=== PATIENT | female | born 1935 | race Caucasian/White ===

== ENCOUNTER 2016-11-10 14:15 | Inpatient (IN) | payer MEDICARE, BC ==
[~2016-11-10] VITALS: Ht 165.1 cm; Wt 66.7 kg
[~2016-11-10 14:15] MED LIST: AMIT25TA PO; LEVO50TA5 PO; METO100T2 PO; OLME1TAB27 PO; SIMV20TA3 PO
[2016-11-10] MEDS ORDERED: IPRATRPIUM/ALBUTEROL 0.5/2.5MG 3 ML NEBU. NEB ONE ×2 (15:30→20:00)
--- NOTE | 2016-11-10 15:33 | RAD ---
INDICATION: chest pain COMPARISON: 11/22/2014 FINDINGS: Single view of chest obtained. Cardiac silhouette is enlarged. Calcific atherosclerosis. Repeat demonstration nodular appearance within the lungs. A portion of the nodularity at right upper lung appears slightly more prominent than prior. IMPRESSION: Repeat demonstration of nodular appearance throughout the bilateral lungs in this patient with known multiple pulmonary nodules bilaterally. Again this could be infectious, inflammatory or neoplastic in nature. Mild nodular patchy opacity right upper lung which may be slightly more prominent than prior. Although this could be secondary to overlap of structures infectious or inflammatory etiology is possible.
--- NOTE | 2016-11-10 15:43 | EKG ---
[facility] [address] [place] [address] Test Date: 2016-11-10 Test Time: 14:30:47 Pat Name: RONNIE RASHEED Department: Room: Gender: F Latexer: : 1935 Requested By: ARIANNA MEJIA Order Number: [id number] Reading MD: Cornell Hamilton Measurements Intervals [place] Rate: 87 P: 48 MT: 200 QRS: 29 QRSD: 90 T: 29 QT: 346 QTc: 417 Interpretive Statements SINUS RHYTHM Electronically Signed On 11-27-2016 14:31:03 FIELD EDUCATION DIRECTOR by Cornell Hamilton
[2016-11-10 16:10] LABS: BASO % 1 % (0-3); EOS % 0 % (0-3); HEMOGLOBIN 13.1 g/dL (12.0-15.5); LYMPH # 0.6 x10^3/uL (1.0-4.8); LYMPH % 6 % (24-48); MEAN CORPUSCULAR HEMOGLOBIN 29 pg (25-35); MEAN CORPUSCULAR HGB CONC 33 g/dL (31-37); MEAN CORPUSCULAR VOLUME 89 fL (79-100); MONO % 4 % (0-9); NEUT % 90 % (31-73); PLATELET COUNT 172 x10^3/uL (140-400); RED BLOOD COUNT 4.48 x10^6/uL (3.50-5.40); RED CELL DISTRIBUTION WIDTH 13.5 % (11.5-14.5); WHITE BLOOD COUNT 9.2 x10^3/uL (4.0-11.0)
[2016-11-10 16:24] LABS: CALCIUM 8.7 mg/dL (8.5-10.1); CREATININE 0.6 mg/dL (0.6-1.0); GFR 95.5; POTASSIUM 4.3 mmol/L (3.5-5.1)
[2016-11-10 16:30] LABS: ALBUMIN 3.1 g/dL (3.4-5.0); DIRECT BILIRUBIN 0.1 mg/dL (0.0-0.2); TOTAL BILIRUBIN 0.2 mg/dL (0.2-1.0); TOTAL PROTEIN 7.6 g/dL (6.4-8.2)
[2016-11-10] MEDS ORDERED: CEFTRIAXONE 1GM IVPB FOR OMNI 50 ML IV ONE (16:30)
[2016-11-10] MEDS ORDERED: AZITHRMYCN 500MG IVPB FOR OMNI 250 ML IV ONE (16:30)
[2016-11-10] MEDS ORDERED: OSELTAMIVIR 75 MG CAPSULE PO ONE (16:30)
[2016-11-10 16:50] LABS: OBC FLU VALID
[2016-11-10] MEDS ORDERED: ONDANSETRON PF 4 MG/2 ML VIAL. IV PRN (17:00)
[2016-11-10] MEDS ORDERED: MORPHINE SULFATE 2 MG/ML DISP.SYRIN. IV PRN (17:00)
--- NOTE | 2016-11-10 17:38 | RAD ---
PROCEDURE CT chest without IV contrast. HISTORY Abnormal chest radiograph. TECHNIQUE Noncontrast CT of the chest was performed. Exposure: One or more of the following individualized dose reduction techniques were utilized for this examination: 1. Automated exposure control. 2. Adjustment of the mA and/or kV according to patient size. 3. Use of iterative reconstruction technique. COMPARISON CT chest August 13, 2014. FINDINGS Thyroid is small, but symmetric. Trachea and mainstem bronchi appear patent. No mediastinal lymphadenopathy is seen. Aortic atherosclerosis is noted. Coronary artery calcifications are present. No pericardial thickening or cardiac chamber enlargement is identified. Both lungs demonstrate numerous pulmonary nodules. Largest soft tissue pulmonary nodule is seen in the right lower lobe and measures 1.8 centimeters in maximum dimension, unchanged. Since previous study, there is interval development of focal consolidation involving the medial right middle lobe, may be focus of acute airspace disease of parenchymal scarring. There is interval development of several irregular pulmonary nodules also seen with some ground-glass opacity involving the medial right upper lobe. These may represent acute is infectious or inflammatory process. No pneumothorax or pleural effusion is identified. Images of the upper abdomen demonstrate 3 millimeter nonobstructive nephrolith. Degenerative changes are present in spine. IMPRESSION 1. Numerous pulmonary nodules are seen. The largest pulmonary nodule right lower lobe is unchanged and suggests benign entity. 2. There is interval development of consolidation involving the medial right middle lobe as well as irregular pulmonary nodules in the right upper lobe. These may represent nonspecific infectious or inflammatory process. Recommend appropriate treatment and followup chest CT in 3 months. Electronically signed by: James Romero MD (Nov 10, 2016 17:36:46)
[2016-11-10 18:19] LABS: PLT ESTIMATE ADEQUATE (ADEQUATE); TOXIC GRANULATION SLIGHT; TOXIC VACUOLATION SLIGHT
[2016-11-10] MEDS ORDERED: PREDNISONE 10 MG TABLET PO ONE (20:00)
[2016-11-10 20:30] VITALS: BP 202/162
[2016-11-10 21:02] VITALS: BP 119/91
[2016-11-10] MEDS ORDERED: AMLO10TA2 PO (21:36)
[2016-11-10] MEDS ORDERED: METO100T2 PO (21:36)
[2016-11-10] MEDS ORDERED: LOSA50TA6 PO (21:36)
[2016-11-10] MEDS ORDERED: POTA20TA4 PO (21:38)
--- NOTE | 2016-11-10 21:42 | PHYS DOC ---
Past Medical History Past Medical History: Hypertension, Hypothyroid, Other Additional Past Medical Histor: Restless leg syndrome, PNEUMONIA, HOME O2 Past Surgical History: Hysterectomy Alcohol Use: None Drug Use: None Adult General Chief Complaint Chief Complaint: SHORTNESS OF BREATH HPI HPI 81-year-old female presenting to the emergency department today with nausea vomiting and myalgias weakness cough that is nonproductive and hypoxia upon triage. This been present for the last day or 2. It is worse with exertion. Associated with cough. No alleviating factors present. Review of systems is negative for chest pain headache. Positive for body aches nausea and a dry cough. All other review of systems is negative unless otherwise noted in history of present illness. Review of Systems Review of Systems SEE ABOVE. Current Medications Current Medications Current Medications Medications (Trade) Dose Ordered Sig/Eva Start Time Stop Time Status Last Admin Dose Admin Albuterol/ Ipratropium 3 ml 3 ml 1X ONCE 11/10/16 15:30 11/10/16 15:37 DC 11/10/16 15:35 3 ML Azithromycin 250 ml @ 250 mls/hr 1X ONCE 11/10/16 16:30 11/10/16 17:29 DC 11/10/16 17:18 250 MLS/HR Ceftriaxone Sodium (Rocephin 1gm Ivpb For Omni) 50 ml @ 100 mls/hr 1X ONCE 11/10/16 16:30 11/10/16 16:59 DC 11/10/16 16:30 100 MLS/HR Oseltamivir Phosphate (Tamiflu) 75 mg 1X ONCE 11/10/16 16:30 11/10/16 16:31 DC 11/10/16 16:50 75 MG Allergies Allergies Allergies Coded Allergies Type Severity Reaction Last Updated Verified No Known Drug Allergies 02/07/14 No Physical Exam Physical Exam Constitutional: Well developed, well nourished, no acute distress, non-toxic appearance. HENT: Normocephalic, atraumatic, bilateral external ears normal, oropharynx moist, no oral exudates, nose normal. [] Eyes: PERRLA, EOMI, conjunctiva normal, no discharge. Neck: Normal range of motion, no tenderness, supple, no stridor. [] Cardiovascular:Heart rate regular rhythm, no murmur Lungs & Thorax: Bilateral breath sounds clear to auscultation [] Abdomen: Bowel sounds normal, soft, no tenderness, no masses, no pulsatile masses. Skin: Warm, dry, no erythema, no rash. Back: No tenderness, no CVA tenderness. [] Extremities: No tenderness, no cyanosis, no clubbing, ROM intact, no edema. [] Neurologic: Alert and oriented X 3, normal motor function, normal sensory function, no focal deficits noted. Psychologic: Affect normal, judgement normal, mood normal. [] Current Patient Data Vital Signs Vital Signs Date Time Temp Pulse Resp B/P Pulse Ox O2 Delivery O2 Flow Rate FiO2 11/10/16 16:30 86 18 145/78 94 Nasal Cannula 2 11/10/16 14:35 97.9 97.9 Lab Values Laboratory Tests Test 11/10/16 14:30 11/10/16 16:00 Influenza Type A Antigen Negative (NEGATIVE) Influenza Type B Antigen Negative (NEGATIVE) White Blood Count 9.2x10^3/uL (4.0-11.0) Red Blood Count 4.48x10^6/uL (3.50-5.40) Hemoglobin 13.1g/dL (12.0-15.5) Hematocrit 40.0% (36.0-47.0) Mean Corpuscular Volume 89fL (79-100) Mean Corpuscular Hemoglobin 29pg (25-35) Mean Corpuscular Hemoglobin Concent 33g/dL (31-37) Red Cell Distribution Width 13.5% (11.5-14.5) Platelet Count 172x10^3/uL (140-400) Neutrophils (%) (Auto) 90% (31-73) H Lymphocytes (%) (Auto) 6% (24-48) L Monocytes (%) (Auto) 4% (0-9) Eosinophils (%) (Auto) 0% (0-3) Basophils (%) (Auto) 1% (0-3) Neutrophils # (Auto) 8.2x10^3uL (1.8-7.7) H Lymphocytes # (Auto) 0.6x10^3/uL (1.0-4.8) L Monocytes # (Auto) 0.4x10^3/uL (0.0-1.1) Eosinophils # (Auto) 0.0x10^3/uL (0.0-0.7) Basophils # (Auto) 0.0x10^3/uL (0.0-0.2) Segmented Neutrophils % 81% (35-66) H Band Neutrophils % 9% (0-9) Lymphocytes % 6% (24-48) L Monocytes % 4% (0-10) Toxic Granulation Slight Toxic Vacuolation Slight Platelet Estimate Adequate (ADEQUATE) Sodium Level 134mmol/L (136-145) L Potassium Level 4.3mmol/L (3.5-5.1) Chloride Level 95mmol/L (98-107) L Carbon Dioxide Level 34mmol/L (21-32) H Anion Gap 5 (6-14) L Blood Urea Nitrogen 11mg/dL (7-20) Creatinine 0.6mg/dL (0.6-1.0) Estimated GFR (Cockcroft-Gault) 95.5 Glucose Level 146mg/dL (70-99) H Calcium Level 8.7mg/dL (8.5-10.1) Total Bilirubin 0.2mg/dL (0.2-1.0) Direct Bilirubin 0.1mg/dL (0.0-0.2) Aspartate Amino Transferase (AST) 25U/L (15-37) Alanine Aminotransferase (ALT) 20U/L (14-59) Alkaline Phosphatase 104U/L (46-116) Troponin I Quantitative 0.050ng/mL (0.000-0.055) HQ-Epi-B-Type Natriuretic Peptide 1909pg/mL (0-449) H Total Protein 7.6g/dL (6.4-8.2) Albumin 3.1g/dL (3.4-5.0) L Lipase 118U/L (73-393) Laboratory Tests 11/10/16 16:00 Laboratory Tests 11/10/16 16:00 EKG EKG [] EKG shows sinus rhythm with a regular rate. Orange normal. Intervals within normal limits. Varying baseline present. ST segments congruent. Radiology/Procedures Radiology/Procedures [] Course & Med Decision Making Course & Med Decision Making Pertinent Labs and Imaging studies reviewed. (See chart for details) [] 81-year-old female presenting to the emergency department with nausea and myalgias generalized weakness and hypoxia. Vital signs showed hypoxia which improved with 3 L nasal cannula. Otherwise afebrile with hypertension. Physical exam is otherwise unremarkable. EKG unremarkable. Chest x-ray concerning for infiltrate. Blood work obtained which showed normal CBC. Chemistry panel showed CO2 retention with elevated proBNP. Troponin within the reference range of normal. Flu negative. Patient had empirically been given Tamiflu even the patient's signs and symptoms along with IV antibiotics and admitted to our hospital for further evaluation workup and care. Pulmonology consult placed. Dragon Disclaimer Dragon Disclaimer This electronic medical record was generated, in whole or in part, using a voice recognition dictation system. Departure Departure Impression: Primary Impression: PNA (pneumonia) Disposition: ADMITTED INPATIENT Admitting Physician: Marcial Moeller Condition: STABLE Referrals: MARCIAL MOELLER MD (PCP) ARIANNA MEJIA MD Nov 10, 2016 21:43
[2016-11-10] MEDS ORDERED: SIMVASTATIN 20 MG TABLET PO ONE (22:45)
[2016-11-10 23:00] VITALS: BP 147/64
[2016-11-10] MEDS: IBUPROFEN 400 MG TABLET. PO PRN (23:02)
--- NOTE | 2016-11-10 23:27 | ACF ---
Admission Forms Criteria PNEUMONIA, COMMUNITY ACQUIRED Clinical Indications for Admission to Inpatient Care ( Place 'X' for any and all applicable criteria): Admission is indicated for ANY ONE of the following (1)(2)(3): [ ]I. Hypoxemia indicated by ANY ONE of the following: [ ]a) Oxygen saturation less than 90% while breathing room air [ ]b) PO2 less than 60 mm Hg (8.0 kPa) while breathing room air [ ]c) Chronic lung disease with significant deterioration from baseline oxygenation [ ]II. Appropriate diagnostic testing and treatment unavailable in outpatient or recovery facility (eg,testing or infection control measures unavailable(10) [ ]III. Moderate-risk or high-risk category patients (Pneumonia Severity Index (PSI) class IV or V, or CURB-65 score of 3 or greater). [ ]IV. Outpatient treatment failure as indicated by ANY ONE of the following(9) : [ ]a) Failure to respond to antibiotic (eg, resistant organism) [ ]b) Clinically significant adverse effects from medication (eg, vomiting) [ ]c) Complications of pneumonia (eg, empyema, bacteremia) [ ]d) Significant worsening of comorbid cond necessitating inpatient care (eg, chronic heart failure) [X]V. Intermediate-risk category patients (eg, PSI class III or CURB-65 score 2) who do not improve with initial therapy and observation. [ ]. Immunocompromised patients (eg, AIDS, chronic steroid use) at moderate or high risk based on clinical evaluation. [ ]VII. Complicated pleural effusions (eg, exudative, loculated) [ ]VIII.Hemodynamic instability [ ] IX. Altered mental status that is severe or persistent. [ ]X. Dehydration that is severe or persistent. [ ]XI. Bacteremia [ ]XII. Respiratory finding (eg. tachypnea) that do not respond to outpatient or observation care treatment Extended stay beyond goal length of stay may be needed for (20) [ ]a) Unclear diagnosis [ ]b) Pleural disease [ ]c) Severe pneumonia or treatment failure (25 [ ]d) Respiratory failure (anticipate invasive or noninvasive ventilatory support) [ ]e) Abnormal serum electrolytes (serum Na concentration less than 135 mEq/L (mmol/L) (32)(33) [ ]f) Clinically significant comorbid illness (eg, heart failure, atrial fibrillation with rapid heart rate, alcohol withdrawal, renal insufficiency)(34)(35) [ ]g) Comorbid acute exacerbation of COPD(36) [ ]h) Concomitant diagnosis of malignancy that may be associated with malnutrition, immunologic impairment, or bronchial obstruction. [ ]i) Concomitant altered mental status [ ]j) Culture-identified Gram-negative or antibiotic-resistant organism (eg, Pseudomonas, methicillin-resistant Staphylococcus aureus)(30) [ ]k) Healthcare-associated pneumonia The original [facility] content created by [facility] [employer] has been revised. The portions of the content which have been revised are identified through the use of italic text or in bold, and [facility] has neither reviewed nor approved the modified material. All other unmodified content is copyright [facility] [employer]. Please see references footnoted in the original [facility] edition 2016 Admission Criteria Met?: Yes MARCELL JENNINGS Nov 10, 2016 23:27
[2016-11-11 03:00] VITALS: BP 134/61
[2016-11-11 06:20] LABS: BASO % 0 % (0-3); EOS % 0 % (0-3); HEMOGLOBIN 12.3 g/dL (12.0-15.5); LYMPH # 0.6 x10^3/uL (1.0-4.8); LYMPH % 7 % (24-48); MEAN CORPUSCULAR HEMOGLOBIN 29 pg (25-35); MEAN CORPUSCULAR HGB CONC 32 g/dL (31-37); MEAN CORPUSCULAR VOLUME 91 fL (79-100); MONO % 2 % (0-9); NEUT % 90 % (31-73); PLATELET COUNT 153 x10^3/uL (140-400); RED CELL DISTRIBUTION WIDTH 13.5 % (11.5-14.5); WHITE BLOOD COUNT 7.7 x10^3/uL (4.0-11.0)
[2016-11-11 06:35] LABS: CALCIUM 8.9 mg/dL (8.5-10.1); CREATININE 0.7 mg/dL (0.6-1.0); GFR 79.9; POTASSIUM 4.4 mmol/L (3.5-5.1)
[2016-11-11] MEDS: LEVOTHYROXINE 50 MCG TABLET PO SCH (06:41)
[2016-11-11 07:15] VITALS: BP 135/58
[2016-11-11] MEDS: IBUPROFEN 400 MG TABLET. PO PRN ×2 (07:58→13:49)
[2016-11-11] MEDS ORDERED: methylPREDNISolone SOD SUCC PF 125 MG/2 ML VIAL. IV SCH (09:00)
[2016-11-11] MEDS ORDERED: ALBUTEROL SULFATE 2.5 MG/3 ML NEBU. NEB PRN (09:00)
--- NOTE | 2016-11-11 09:01 | PDOC ---
PULMONARY PROGRESS NOTES Vitals Vital Signs Date Time Temp Pulse Resp B/P Pulse Ox O2 Delivery O2 Flow Rate FiO2 11/11/16 07:15 97.9 106 20 135/58 95 Nasal Cannula 4.0 97.9 General: Alert, Oriented X4 Lungs: Crackles, Other Cardiovascular: S1, S2 Abdomen: Soft, Non-tender Extremities: No Edema Labs Laboratory Tests Test 11/10/16 14:30 11/10/16 16:00 11/10/16 21:43 11/11/16 05:00 Influenza Type A Antigen Negative (NEGATIVE) Influenza Type B Antigen Negative (NEGATIVE) White Blood Count 9.2x10^3/uL (4.0-11.0) 7.7x10^3/uL (4.0-11.0) Red Blood Count 4.48x10^6/uL (3.50-5.40) 4.20x10^6/uL (3.50-5.40) Hemoglobin 13.1g/dL (12.0-15.5) 12.3g/dL (12.0-15.5) Hematocrit 40.0% (36.0-47.0) 38.0% (36.0-47.0) Mean Corpuscular Volume 89fL (79-100) 91fL (79-100) Mean Corpuscular Hemoglobin 29pg (25-35) 29pg (25-35) Mean Corpuscular Hemoglobin Concent 33g/dL (31-37) 32g/dL (31-37) Red Cell Distribution Width 13.5% (11.5-14.5) 13.5% (11.5-14.5) Platelet Count 172x10^3/uL (140-400) 153x10^3/uL (140-400) Neutrophils (%) (Auto) 90% (31-73) 90% (31-73) Lymphocytes (%) (Auto) 6% (24-48) 7% (24-48) Monocytes (%) (Auto) 4% (0-9) 2% (0-9) Eosinophils (%) (Auto) 0% (0-3) 0% (0-3) Basophils (%) (Auto) 1% (0-3) 0% (0-3) Neutrophils # (Auto) 8.2x10^3uL (1.8-7.7) 6.9x10^3uL (1.8-7.7) Lymphocytes # (Auto) 0.6x10^3/uL (1.0-4.8) 0.6x10^3/uL (1.0-4.8) Monocytes # (Auto) 0.4x10^3/uL (0.0-1.1) 0.2x10^3/uL (0.0-1.1) Eosinophils # (Auto) 0.0x10^3/uL (0.0-0.7) 0.0x10^3/uL (0.0-0.7) Basophils # (Auto) 0.0x10^3/uL (0.0-0.2) 0.0x10^3/uL (0.0-0.2) Segmented Neutrophils % 81% (35-66) Band Neutrophils % 9% (0-9) Lymphocytes % 6% (24-48) Monocytes % 4% (0-10) Toxic Granulation Slight Toxic Vacuolation Slight Platelet Estimate Adequate (ADEQUATE) Sodium Level 134mmol/L (136-145) 135mmol/L (136-145) Potassium Level 4.3mmol/L (3.5-5.1) 4.4mmol/L (3.5-5.1) Chloride Level 95mmol/L (98-107) 96mmol/L (98-107) Carbon Dioxide Level 34mmol/L (21-32) 34mmol/L (21-32) Anion Gap 5 (6-14) 5 (6-14) Blood Urea Nitrogen 11mg/dL (7-20) 15mg/dL (7-20) Creatinine 0.6mg/dL (0.6-1.0) 0.7mg/dL (0.6-1.0) Estimated GFR (Cockcroft-Gault) 95.5 79.9 Glucose Level 146mg/dL (70-99) 142mg/dL (70-99) Calcium Level 8.7mg/dL (8.5-10.1) 8.9mg/dL (8.5-10.1) Total Bilirubin 0.2mg/dL (0.2-1.0) Direct Bilirubin 0.1mg/dL (0.0-0.2) Aspartate Amino Transf (AST/SGOT) 25U/L (15-37) Alanine Aminotransferase (ALT/SGPT) 20U/L (14-59) Alkaline Phosphatase 104U/L (46-116) Troponin I Quantitative 0.050ng/mL (0.000-0.055) 0.027ng/mL (0.000-0.055) 0.043ng/mL (0.000-0.055) LT-Dki-S-Type Natriuretic Peptide 1909pg/mL (0-449) Total Protein 7.6g/dL (6.4-8.2) Albumin 3.1g/dL (3.4-5.0) Lipase 118U/L (73-393) Laboratory Tests Test 11/10/16 14:30 11/10/16 16:00 11/10/16 21:43 11/11/16 05:00 Influenza Type A Antigen Negative (NEGATIVE) Influenza Type B Antigen Negative (NEGATIVE) White Blood Count 9.2x10^3/uL (4.0-11.0) 7.7x10^3/uL (4.0-11.0) Red Blood Count 4.48x10^6/uL (3.50-5.40) 4.20x10^6/uL (3.50-5.40) Hemoglobin 13.1g/dL (12.0-15.5) 12.3g/dL (12.0-15.5) Hematocrit 40.0% (36.0-47.0) 38.0% (36.0-47.0) Mean Corpuscular Volume 89fL (79-100) 91fL (79-100) Mean Corpuscular Hemoglobin 29pg (25-35) 29pg (25-35) Mean Corpuscular Hemoglobin Concent 33g/dL (31-37) 32g/dL (31-37) Red Cell Distribution Width 13.5% (11.5-14.5) 13.5% (11.5-14.5) Platelet Count 172x10^3/uL (140-400) 153x10^3/uL (140-400) Neutrophils (%) (Auto) 90% (31-73) 90% (31-73) Lymphocytes (%) (Auto) 6% (24-48) 7% (24-48) Monocytes (%) (Auto) 4% (0-9) 2% (0-9) Eosinophils (%) (Auto) 0% (0-3) 0% (0-3) Basophils (%) (Auto) 1% (0-3) 0% (0-3) Neutrophils # (Auto) 8.2x10^3uL (1.8-7.7) 6.9x10^3uL (1.8-7.7) Lymphocytes # (Auto) 0.6x10^3/uL (1.0-4.8) 0.6x10^3/uL (1.0-4.8) Monocytes # (Auto) 0.4x10^3/uL (0.0-1.1) 0.2x10^3/uL (0.0-1.1) Eosinophils # (Auto) 0.0x10^3/uL (0.0-0.7) 0.0x10^3/uL (0.0-0.7) Basophils # (Auto) 0.0x10^3/uL (0.0-0.2) 0.0x10^3/uL (0.0-0.2) Segmented Neutrophils % 81% (35-66) Band Neutrophils % 9% (0-9) Lymphocytes % 6% (24-48) Monocytes % 4% (0-10) Toxic Granulation Slight Toxic Vacuolation Slight Platelet Estimate Adequate (ADEQUATE) Sodium Level 134mmol/L (136-145) 135mmol/L (136-145) Potassium Level 4.3mmol/L (3.5-5.1) 4.4mmol/L (3.5-5.1) Chloride Level 95mmol/L (98-107) 96mmol/L (98-107) Carbon Dioxide Level 34mmol/L (21-32) 34mmol/L (21-32) Anion Gap 5 (6-14) 5 (6-14) Blood Urea Nitrogen 11mg/dL (7-20) 15mg/dL (7-20) Creatinine 0.6mg/dL (0.6-1.0) 0.7mg/dL (0.6-1.0) Estimated GFR (Cockcroft-Gault) 95.5 79.9 Glucose Level 146mg/dL (70-99) 142mg/dL (70-99) Calcium Level 8.7mg/dL (8.5-10.1) 8.9mg/dL (8.5-10.1) Total Bilirubin 0.2mg/dL (0.2-1.0) Direct Bilirubin 0.1mg/dL (0.0-0.2) Aspartate Amino Transf (AST/SGOT) 25U/L (15-37) Alanine Aminotransferase (ALT/SGPT) 20U/L (14-59) Alkaline Phosphatase 104U/L (46-116) Troponin I Quantitative 0.050ng/mL (0.000-0.055) 0.027ng/mL (0.000-0.055) 0.043ng/mL (0.000-0.055) DZ-Pxm-P-Type Natriuretic Peptide 1909pg/mL (0-449) Total Protein 7.6g/dL (6.4-8.2) Albumin 3.1g/dL (3.4-5.0) Lipase 118U/L (73-393) Medications Active Scripts Medications Dose Route/Sig Days Date Category Klor-Con M20 (Potassium Chloride) 20 Meq Tab.er.prt 20 Meq PO DAILY 11/10/16 Reported Metoprolol Tartrate 100 Mg Tablet 100 Mg PO BID 11/10/16 Reported Amlodipine Besylate 10 Mg Tablet 10 Mg PO DAILY 11/10/16 Reported Losartan Potassium 50 Mg Tablet 50 Mg PO DAILY 11/10/16 Reported Levothyroxine Sodium 50 Mcg Tablet 50 Mcg PO DAILY07 02/04/14 Reported Simvastatin 20 Mg Tablet 20 Mg PO HS 02/04/14 Reported Amitriptyline Hcl 25 Mg Tablet 25 Mg PO HS 02/04/14 Reported Impression . FULL CONSULT DICTATED CT REVIEWED NEW INFILTRATE RML PNEUMONIA TREAT FOR PNEUMONIA 02, RUTH HAND MD Nov 11, 2016 09:00
[2016-11-11] MEDS: methylPREDNISolone SOD SUCC PF 125 MG/2 ML VIAL. IV SCH ×2 (09:51→21:44)
[2016-11-11] MEDS: ENOXAPARIN 40 MG/0.4 ML DISP.SYRIN. SQ SCH (09:52)
--- NOTE | 2016-11-11 10:24 | PDOC ---
PROGRESS NOTES Subjective Subjective Pt awake and pleasant. Less confused this am than yesterday. Pt continues to c/ o cough and SOB with exertion. Pt states she has a poor appetite. Objective Objective Pt awake and alert. NAD. VSS. Afebrile. Lungs with loose rhonchi throughout and expiratory wheeze. Pt on 4L of O2 per NC. Heart with RRR. No murmurs. Vital Signs Date Time Temp Pulse Resp B/P Pulse Ox O2 Delivery O2 Flow Rate FiO2 11/11/16 07:15 97.9 106 20 135/58 95 Nasal Cannula 4.0 97.9 Intake and Output 11/11/16 07:00 Intake Total 700 ml Balance 700 ml Intake Oral 400 ml IV Total 300 ml # Voids 1 Assessment Assessment Problems Medical Problems: (1) PNA (pneumonia) Status: Acute Plan Plan of Care 1. RML pneumonia with hypoxia and encephalopathy -WBC 9.2 upon admission, 7.7 this am -CXR: Mild nodular patchy opacity right upper lung -CT chest: 1. Numerous pulmonary nodules are seen. The largest pulmonary nodule right lower lobe is unchanged and suggests benign entity. 2. There is interval development of consolidation involving the medial right middle lobe as well as irregular pulmonary nodules in the right upper lobe. These may represent nonspecific infectious or inflammatory process. -Abx: Levaquin 500mg IV q24 -Methylprednisone 125mg q8h -Albuterol per neb prn -Pulmonology consulting Med hx: hypothyroidism, HTN, dyslipidemia, restless leg syndrome Comment Review of Relevant I have reviewed the following items angel (where applicable) has been applied. Labs Laboratory Tests Test 11/10/16 14:30 11/10/16 16:00 11/10/16 21:43 11/11/16 05:00 Influenza Type A Antigen Negative (NEGATIVE) Influenza Type B Antigen Negative (NEGATIVE) White Blood Count 9.2x10^3/uL (4.0-11.0) 7.7x10^3/uL (4.0-11.0) Red Blood Count 4.48x10^6/uL (3.50-5.40) 4.20x10^6/uL (3.50-5.40) Hemoglobin 13.1g/dL (12.0-15.5) 12.3g/dL (12.0-15.5) Hematocrit 40.0% (36.0-47.0) 38.0% (36.0-47.0) Mean Corpuscular Volume 89fL (79-100) 91fL (79-100) Mean Corpuscular Hemoglobin 29pg (25-35) 29pg (25-35) Mean Corpuscular Hemoglobin Concent 33g/dL (31-37) 32g/dL (31-37) Red Cell Distribution Width 13.5% (11.5-14.5) 13.5% (11.5-14.5) Platelet Count 172x10^3/uL (140-400) 153x10^3/uL (140-400) Neutrophils (%) (Auto) 90% (31-73) 90% (31-73) Lymphocytes (%) (Auto) 6% (24-48) 7% (24-48) Monocytes (%) (Auto) 4% (0-9) 2% (0-9) Eosinophils (%) (Auto) 0% (0-3) 0% (0-3) Basophils (%) (Auto) 1% (0-3) 0% (0-3) Neutrophils # (Auto) 8.2x10^3uL (1.8-7.7) 6.9x10^3uL (1.8-7.7) Lymphocytes # (Auto) 0.6x10^3/uL (1.0-4.8) 0.6x10^3/uL (1.0-4.8) Monocytes # (Auto) 0.4x10^3/uL (0.0-1.1) 0.2x10^3/uL (0.0-1.1) Eosinophils # (Auto) 0.0x10^3/uL (0.0-0.7) 0.0x10^3/uL (0.0-0.7) Basophils # (Auto) 0.0x10^3/uL (0.0-0.2) 0.0x10^3/uL (0.0-0.2) Segmented Neutrophils % 81% (35-66) Band Neutrophils % 9% (0-9) Lymphocytes % 6% (24-48) Monocytes % 4% (0-10) Toxic Granulation Slight Toxic Vacuolation Slight Platelet Estimate Adequate (ADEQUATE) Sodium Level 134mmol/L (136-145) 135mmol/L (136-145) Potassium Level 4.3mmol/L (3.5-5.1) 4.4mmol/L (3.5-5.1) Chloride Level 95mmol/L (98-107) 96mmol/L (98-107) Carbon Dioxide Level 34mmol/L (21-32) 34mmol/L (21-32) Anion Gap 5 (6-14) 5 (6-14) Blood Urea Nitrogen 11mg/dL (7-20) 15mg/dL (7-20) Creatinine 0.6mg/dL (0.6-1.0) 0.7mg/dL (0.6-1.0) Estimated GFR (Cockcroft-Gault) 95.5 79.9 Glucose Level 146mg/dL (70-99) 142mg/dL (70-99) Calcium Level 8.7mg/dL (8.5-10.1) 8.9mg/dL (8.5-10.1) Total Bilirubin 0.2mg/dL (0.2-1.0) Direct Bilirubin 0.1mg/dL (0.0-0.2) Aspartate Amino Transf (AST/SGOT) 25U/L (15-37) Alanine Aminotransferase (ALT/SGPT) 20U/L (14-59) Alkaline Phosphatase 104U/L (46-116) Troponin I Quantitative 0.050ng/mL (0.000-0.055) 0.027ng/mL (0.000-0.055) 0.043ng/mL (0.000-0.055) PR-Ztn-X-Type Natriuretic Peptide 1909pg/mL (0-449) Total Protein 7.6g/dL (6.4-8.2) Albumin 3.1g/dL (3.4-5.0) Lipase 118U/L (73-393) Laboratory Tests Test 11/10/16 14:30 11/10/16 16:00 11/10/16 21:43 11/11/16 05:00 Influenza Type A Antigen Negative (NEGATIVE) Influenza Type B Antigen Negative (NEGATIVE) White Blood Count 9.2x10^3/uL (4.0-11.0) 7.7x10^3/uL (4.0-11.0) Red Blood Count 4.48x10^6/uL (3.50-5.40) 4.20x10^6/uL (3.50-5.40) Hemoglobin 13.1g/dL (12.0-15.5) 12.3g/dL (12.0-15.5) Hematocrit 40.0% (36.0-47.0) 38.0% (36.0-47.0) Mean Corpuscular Volume 89fL (79-100) 91fL (79-100) Mean Corpuscular Hemoglobin 29pg (25-35) 29pg (25-35) Mean Corpuscular Hemoglobin Concent 33g/dL (31-37) 32g/dL (31-37) Red Cell Distribution Width 13.5% (11.5-14.5) 13.5% (11.5-14.5) Platelet Count 172x10^3/uL (140-400) 153x10^3/uL (140-400) Neutrophils (%) (Auto) 90% (31-73) 90% (31-73) Lymphocytes (%) (Auto) 6% (24-48) 7% (24-48) Monocytes (%) (Auto) 4% (0-9) 2% (0-9) Eosinophils (%) (Auto) 0% (0-3) 0% (0-3) Basophils (%) (Auto) 1% (0-3) 0% (0-3) Neutrophils # (Auto) 8.2x10^3uL (1.8-7.7) 6.9x10^3uL (1.8-7.7) Lymphocytes # (Auto) 0.6x10^3/uL (1.0-4.8) 0.6x10^3/uL (1.0-4.8) Monocytes # (Auto) 0.4x10^3/uL (0.0-1.1) 0.2x10^3/uL (0.0-1.1) Eosinophils # (Auto) 0.0x10^3/uL (0.0-0.7) 0.0x10^3/uL (0.0-0.7) Basophils # (Auto) 0.0x10^3/uL (0.0-0.2) 0.0x10^3/uL (0.0-0.2) Segmented Neutrophils % 81% (35-66) Band Neutrophils % 9% (0-9) Lymphocytes % 6% (24-48) Monocytes % 4% (0-10) Toxic Granulation Slight Toxic Vacuolation Slight Platelet Estimate Adequate (ADEQUATE) Sodium Level 134mmol/L (136-145) 135mmol/L (136-145) Potassium Level 4.3mmol/L (3.5-5.1) 4.4mmol/L (3.5-5.1) Chloride Level 95mmol/L (98-107) 96mmol/L (98-107) Carbon Dioxide Level 34mmol/L (21-32) 34mmol/L (21-32) Anion Gap 5 (6-14) 5 (6-14) Blood Urea Nitrogen 11mg/dL (7-20) 15mg/dL (7-20) Creatinine 0.6mg/dL (0.6-1.0) 0.7mg/dL (0.6-1.0) Estimated GFR (Cockcroft-Gault) 95.5 79.9 Glucose Level 146mg/dL (70-99) 142mg/dL (70-99) Calcium Level 8.7mg/dL (8.5-10.1) 8.9mg/dL (8.5-10.1) Total Bilirubin 0.2mg/dL (0.2-1.0) Direct Bilirubin 0.1mg/dL (0.0-0.2) Aspartate Amino Transf (AST/SGOT) 25U/L (15-37) Alanine Aminotransferase (ALT/SGPT) 20U/L (14-59) Alkaline Phosphatase 104U/L (46-116) Troponin I Quantitative 0.050ng/mL (0.000-0.055) 0.027ng/mL (0.000-0.055) 0.043ng/mL (0.000-0.055) PC-Qdi-Z-Type Natriuretic Peptide 1909pg/mL (0-449) Total Protein 7.6g/dL (6.4-8.2) Albumin 3.1g/dL (3.4-5.0) Lipase 118U/L (73-393) Medications Current Medications Albuterol/ Ipratropium 3 ml 3 ml 1X ONCE NEB Last administered on 11/10/16 15 :35; Start 11/10/16 at 15:30; Stop 11/10/16 at 15:37; Status DC Azithromycin 250 ml @ 250 mls/hr 1X ONCE IV Last administered on 11/10/16 17 :18; Start 11/10/16 at 16:30; Stop 11/10/16 at 17:29; Status DC Ceftriaxone Sodium (Rocephin 1gm Ivpb For Omni) 50 ml @ 100 mls/hr 1X ONCE IV Last administered on 11/10/16 16:30; Start 11/10/16 at 16:30; Stop 11/10/16 at 16:59; Status DC Oseltamivir Phosphate (Tamiflu) 75 mg 1X ONCE PO Last administered on 16:50; Start 11/10/16 at 16:30; Stop 11/10/16 at 16:31; Status DC Ondansetron HCl (Zofran) 4 mg PRN Q8HRS PRN IV NAUSEA/VOMITING; Start 11/10/16 at 17:00; Stop 11/11/16 at 16:59 Morphine Sulfate 2 mg PRN Q2HR PRN IV PAIN; Start 11/10/16 at 17:00; Stop 11/11 at 16:59 Albuterol/ Ipratropium (Duoneb) 3 ml 1X ONCE NEB Last administered on 19:57; Start 11/10/16 at 20:00; Stop 11/10/16 at 20:01; Status DC Prednisone (Prednisone) 50 mg 1X ONCE PO Last administered on 11/10/16 21:21 ; Start 11/10/16 at 20:00; Stop 11/10/16 at 20:01; Status DC Levothyroxine Sodium (Synthroid) 50 mcg DAILY07 PO Last administered on 06:41; Start 11/11/16 at 07:00 Simvastatin (Zocor) 20 mg HS PO ; Start 11/11/16 at 21:00 Simvastatin (Zocor) 20 mg 1X ONCE PO Last administered on 11/10/16 22:41; Start 11/10/16 at 22:45; Stop 11/10/16 at 22:46; Status DC Ibuprofen 400 mg 400 mg PRN Q6HRS PRN PO INFLAMMATION Last administered on 11/11 07:58; Start 11/10/16 at 23:00 Levofloxacin/ Dextrose (LEVAQUIN 500mg PREMIX) 100 ml @ 100 mls/hr 1X ONCE IV Last administered on 11/11/16 09:51; Start 11/11/16 at 10:00; Stop 11/11/16 at 10:59 Albuterol Sulfate (Ventolin Neb Soln) 2.5 mg QID NEB ; Start 11/11/16 at 09:30 Albuterol Sulfate (Ventolin Neb Soln) 2.5 mg PRN Q2HR PRN NEB DYSPNEA; Start at 09:00 Enoxaparin Sodium (Lovenox 40mg Syringe) 40 mg DAILY SQ Last administered on 09:52; Start 11/11/16 at 10:00 Methylprednisolone Sodium Succinate (Solu-Medrol 125mg Vial) 125 mg Q8HRS IV Last administered on 11/11/16 09:51; Start 11/11/16 at 10:00 Methylprednisolone Sodium Succinate 60 mg 60 mg BID IV ; Start 11/11/16 at 09:00 ; Status UNV Levofloxacin/ Dextrose (LEVAQUIN 250mg PREMIX) 50 ml @ 50 mls/hr Q24H IV ; Start 11/12/16 at 10:00 Active Scripts Active Reported Klor-Con M20 (Potassium Chloride) 20 Meq Tab.er.prt 20 Meq PO DAILY Metoprolol Tartrate 100 Mg Tablet 100 Mg PO BID Amlodipine Besylate 10 Mg Tablet 10 Mg PO DAILY Losartan Potassium 50 Mg Tablet 50 Mg PO DAILY Levothyroxine Sodium 50 Mcg Tablet 50 Mcg PO DAILY07 Simvastatin 20 Mg Tablet 20 Mg PO HS Amitriptyline Hcl 25 Mg Tablet 25 Mg PO HS Vitals/I & O Vital Sign - Last 24 Hours 11/10/16 11/10/16 11/10/16 11/10/16 14:35 15:30 15:42 16:30 Temp 97.9 97.9 Pulse 85 84 86 Resp 16 18 18 B/P 175/80 159/77 145/78 Pulse Ox 94 97 94 94 O2 Delivery Nasal Cannula Nasal Cannula Nasal Cannula Nasal Cannula O2 Flow Rate 3 2 4.0 2 11/10/16 11/10/16 11/10/16 11/10/16 19:00 19:21 20:00 20:30 Pulse 107 99 Resp 20 20 B/P 132/81 153/87 Pulse Ox 100 99 94 O2 Delivery Nasal Cannula Nasal Cannula Nasal Cannula Nasal Cannula O2 Flow Rate 4 4 4.0 4.0 11/10/16 11/10/16 11/10/16 11/11/16 20:30 21:02 23:00 03:00 Temp 97.7 98.2 98.2 97.7 98.2 98.2 Pulse 100 103 92 76 Resp 24 28 24 22 B/P 202/162 119/91 147/64 134/61 Pulse Ox 95 96 93 93 O2 Delivery Nasal Cannula Nasal Cannula Nasal Cannula O2 Flow Rate 2.0 4.0 4.0 11/11/16 07:15 Temp 97.9 97.9 Pulse 106 Resp 20 B/P 135/58 Pulse Ox 95 O2 Delivery Nasal Cannula O2 Flow Rate 4.0 Intake and Output 11/10/16 11/10/16 11/11/16 15:00 23:00 07:00 Intake Total 300 ml 400 ml Balance 300 ml 400 ml MARCIAL MOELLER MD Nov 11, 2016 10:23
--- NOTE | 2016-11-11 11:01 | HP ---
ADMIT DATE: 11/10/2016 This is Ofelia Gavin APRN dictating on behalf of Dr. Marcial Man. CHIEF COMPLAINT AND HISTORY OF PRESENT ILLNESS: This is an 81-year-old female who is well known to me from followup in the clinic over many years. The patient presented to the clinic on the date of admission to the hospital with complaints of cough, shortness of breath, nausea and vomiting and generalized weakness with myalgias. Upon examination in the clinic, the patient was found to be encephalopathic with confusion present and hypoxia with O2 sat of 83%. The patient was sent to the Emergency Room for further evaluation. Upon examination in the Emergency Room, the patient was found to be hypoxic and was placed on 3 liters of O2 to get her O2 saturation was greater than 90%. CBC showed a normal WBC. Chemistry panel showed CO2 retention and elevated proBNP and chest x-ray revealed right middle lobe pneumonia and CT scan confirmed this. The patient was placed on IV Levaquin and given Tamiflu empirically, ____ A and B were both found to be negative. The patient was admitted to the hospital for IV antibiotics and treatment of her hypoxia secondary to right middle lobe pneumonia. PAST MEDICAL HISTORY: Remarkable for hypothyroidism, hypertension, dyslipidemia and restless legs syndrome. PAST SURGICAL HISTORY: Hysterectomy. MEDICATIONS: Brought with the patient, listed on the computer and have been addressed. SOCIAL HISTORY: The patient is a former smoker who quit smoking many years ago. She is a nondrinker. She is and lives at home with the help of a grandson. FAMILY HISTORY: Noncontributory. REVIEW OF SYSTEMS: As mentioned above. PHYSICAL EXAMINATION: GENERAL: She is a well-developed and well-nourished elderly female, in no acute distress. She is confused and oriented to person only. VITAL SIGNS: The patient is hypoxic with O2 saturation of 83%. The remainder of her vital signs are stable. She is afebrile. HEENT: Head, eyes, ears, nose and throat are unremarkable. She does wear eyeglasses. NECK: Supple, without lymphadenopathy or thyromegaly. CHEST: Reveals bilateral rhonchi with an expiratory wheeze present. The patient has short of breath with conversation. However, no retractions are noted. HEART: Regular rate and rhythm without S3, S4 or murmur. ABDOMEN: Soft and nontender, without hepatosplenomegaly or mass. EXTREMITIES: Without cyanosis, clubbing or edema. NEUROLOGIC: Remarkable for mild confusion. IMPRESSION: Right middle lobe pneumonia with hypoxia and encephalopathic changes. PLAN: The patient has been admitted. IV Levaquin will be initiated q.24h., methylprednisone will be given 125 mg daily. Pulmonology will be consulted secondary to multiple lung nodules noted on chest x-ray and CT scan. The patient will be given albuterol p.r.n. q.2h. We will continue to monitor, manage and treat the patient appropriately throughout her hospital stay. MARCIAL MAN MD DR: STEPHANIE/carlos JOB#: [id number] / [id number]
[2016-11-11 11:15] VITALS: BP 135/66
[2016-11-11] MEDS: ALBUTEROL SULFATE 2.5 MG/3 ML NEBU. NEB SCH ×3 (11:22→20:18)
[2016-11-11] MEDS: POTASSIUM CHLORIDE 20 MEQ TABLET.ER. PO SCH (12:02)
[2016-11-11] MEDS: LOSARTAN POTASSIUM 50 MG TABLET. PO SCH (12:03)
[2016-11-11] MEDS: METOPROLOL TART IMMED RELEASE 50 MG TABLET PO SCH ×2 (12:04→21:45)
[2016-11-11] MEDS: AMLODIPINE BESYLATE 10 MG TABLET PO SCH (12:04)
[2016-11-11] MEDS ORDERED: BENZOCAINE/MENTHOL LOZENGE. PO PRN (13:30)
[2016-11-11] MEDS: BENZONATATE 100 MG CAPSULE. PO PRN (13:49)
[2016-11-11 15:12] VITALS: BP 104/57
[2016-11-11 19:00] VITALS: BP 126/53
[2016-11-11] MEDS: AMITRIPTYLINE HCL 25 MG TABLET PO SCH (21:44)
[2016-11-11] MEDS: SIMVASTATIN 20 MG TABLET PO SCH (21:44)
[2016-11-11 23:00] VITALS: BP 138/76
[2016-11-12 03:00] VITALS: BP 107/44
[2016-11-12] MEDS: LEVOTHYROXINE 50 MCG TABLET PO SCH (06:12)
[2016-11-12] MEDS: methylPREDNISolone SOD SUCC PF 125 MG/2 ML VIAL. IV SCH ×3 (06:13→21:35)
[2016-11-12 07:40] VITALS: BP 124/64
[2016-11-12] MEDS: ALBUTEROL SULFATE 2.5 MG/3 ML NEBU. NEB SCH ×4 (07:41→20:33)
--- NOTE | 2016-11-12 10:32 | PDOC ---
PROGRESS NOTES Subjective Subjective Pt awake and pleasant. Confusion improved this am. Pt states she is eating and drinking well with good output. Pt continues to c/o cough. Objective Objective Pt awake and alert. NAD. VSS. Afebrile. Lung sounds diminished with mild exp wheeze. Resp even and unlabored. Pt on 4L of O2 per NC. Heart with RRR. No murmurs. No pedal edema. Vital Signs Date Time Temp Pulse Resp B/P Pulse Ox O2 Delivery O2 Flow Rate FiO2 11/12/16 07:45 Nasal Cannula 4.0 11/12/16 07:40 98.3 84 18 124/64 97 98.3 Intake and Output 11/12/16 07:00 Intake Total 760 ml Output Total 300 ml Balance 460 ml Intake Oral 660 ml IV Total 100 ml Output Urine Total 300 ml # Voids 4 # Bowel Movements 1 Assessment Assessment Problems Medical Problems: (1) PNA (pneumonia) Status: Acute Plan Plan of Care 1. RML pneumonia with hypoxia and encephalopathy -WBC 9.2 upon admission, 7.7 this am -CXR: Mild nodular patchy opacity right upper lung -Recheck in am -CT chest: 1. Numerous pulmonary nodules are seen. The largest pulmonary nodule right lower lobe is unchanged and suggests benign entity. 2. There is interval development of consolidation involving the medial right middle lobe as well as irregular pulmonary nodules in the right upper lobe. These may represent nonspecific infectious or inflammatory process. -Abx: Levaquin 500mg IV q24 -Methylprednisone 125mg q8h -Albuterol per neb prn -Pulmonology consulting Med hx: hypothyroidism, HTN, dyslipidemia, restless leg syndrome Comment Review of Relevant I have reviewed the following items angel (where applicable) has been applied. Labs Laboratory Tests Test 11/10/16 14:30 11/10/16 16:00 11/10/16 21:43 11/11/16 05:00 Influenza Type A Antigen Negative (NEGATIVE) Influenza Type B Antigen Negative (NEGATIVE) White Blood Count 9.2x10^3/uL (4.0-11.0) 7.7x10^3/uL (4.0-11.0) Red Blood Count 4.48x10^6/uL (3.50-5.40) 4.20x10^6/uL (3.50-5.40) Hemoglobin 13.1g/dL (12.0-15.5) 12.3g/dL (12.0-15.5) Hematocrit 40.0% (36.0-47.0) 38.0% (36.0-47.0) Mean Corpuscular Volume 89fL (79-100) 91fL (79-100) Mean Corpuscular Hemoglobin 29pg (25-35) 29pg (25-35) Mean Corpuscular Hemoglobin Concent 33g/dL (31-37) 32g/dL (31-37) Red Cell Distribution Width 13.5% (11.5-14.5) 13.5% (11.5-14.5) Platelet Count 172x10^3/uL (140-400) 153x10^3/uL (140-400) Neutrophils (%) (Auto) 90% (31-73) 90% (31-73) Lymphocytes (%) (Auto) 6% (24-48) 7% (24-48) Monocytes (%) (Auto) 4% (0-9) 2% (0-9) Eosinophils (%) (Auto) 0% (0-3) 0% (0-3) Basophils (%) (Auto) 1% (0-3) 0% (0-3) Neutrophils # (Auto) 8.2x10^3uL (1.8-7.7) 6.9x10^3uL (1.8-7.7) Lymphocytes # (Auto) 0.6x10^3/uL (1.0-4.8) 0.6x10^3/uL (1.0-4.8) Monocytes # (Auto) 0.4x10^3/uL (0.0-1.1) 0.2x10^3/uL (0.0-1.1) Eosinophils # (Auto) 0.0x10^3/uL (0.0-0.7) 0.0x10^3/uL (0.0-0.7) Basophils # (Auto) 0.0x10^3/uL (0.0-0.2) 0.0x10^3/uL (0.0-0.2) Segmented Neutrophils % 81% (35-66) Band Neutrophils % 9% (0-9) Lymphocytes % 6% (24-48) Monocytes % 4% (0-10) Toxic Granulation Slight Toxic Vacuolation Slight Platelet Estimate Adequate (ADEQUATE) Sodium Level 134mmol/L (136-145) 135mmol/L (136-145) Potassium Level 4.3mmol/L (3.5-5.1) 4.4mmol/L (3.5-5.1) Chloride Level 95mmol/L (98-107) 96mmol/L (98-107) Carbon Dioxide Level 34mmol/L (21-32) 34mmol/L (21-32) Anion Gap 5 (6-14) 5 (6-14) Blood Urea Nitrogen 11mg/dL (7-20) 15mg/dL (7-20) Creatinine 0.6mg/dL (0.6-1.0) 0.7mg/dL (0.6-1.0) Estimated GFR (Cockcroft-Gault) 95.5 79.9 Glucose Level 146mg/dL (70-99) 142mg/dL (70-99) Calcium Level 8.7mg/dL (8.5-10.1) 8.9mg/dL (8.5-10.1) Total Bilirubin 0.2mg/dL (0.2-1.0) Direct Bilirubin 0.1mg/dL (0.0-0.2) Aspartate Amino Transf (AST/SGOT) 25U/L (15-37) Alanine Aminotransferase (ALT/SGPT) 20U/L (14-59) Alkaline Phosphatase 104U/L (46-116) Troponin I Quantitative 0.050ng/mL (0.000-0.055) 0.027ng/mL (0.000-0.055) 0.043ng/mL (0.000-0.055) UY-Jen-A-Type Natriuretic Peptide 1909pg/mL (0-449) Total Protein 7.6g/dL (6.4-8.2) Albumin 3.1g/dL (3.4-5.0) Lipase 118U/L (73-393) Medications Current Medications Albuterol/ Ipratropium 3 ml 3 ml 1X ONCE NEB Last administered on 11/10/16t 15 :35; Start 11/10/16 at 15:30; Stop 11/10/16 at 15:37; Status DC Azithromycin 250 ml @ 250 mls/hr 1X ONCE IV Last administered on 11/10/16 17 :18; Start 11/10/16 at 16:30; Stop 11/10/16 at 17:29; Status DC Ceftriaxone Sodium (Rocephin 1gm Ivpb For Omni) 50 ml @ 100 mls/hr 1X ONCE IV Last administered on 11/10/16 16:30; Start 11/10/16 at 16:30; Stop 11/10/16 at 16:59; Status DC Oseltamivir Phosphate (Tamiflu) 75 mg 1X ONCE PO Last administered on 16:50; Start 11/10/16 at 16:30; Stop 11/10/16 at 16:31; Status DC Ondansetron HCl (Zofran) 4 mg PRN Q8HRS PRN IV NAUSEA/VOMITING; Start 11/10/16 at 17:00; Stop 11/11/16 at 16:59; Status DC Morphine Sulfate 2 mg PRN Q2HR PRN IV PAIN; Start 11/10/16 at 17:00; Stop 11/11 at 16:59; Status DC Albuterol/ Ipratropium (Duoneb) 3 ml 1X ONCE NEB Last administered on 19:57; Start 11/10/16 at 20:00; Stop 11/10/16 at 20:01; Status DC Prednisone (Prednisone) 50 mg 1X ONCE PO Last administered on 11/10/16 21:21 ; Start 11/10/16 at 20:00; Stop 11/10/16 at 20:01; Status DC Levothyroxine Sodium (Synthroid) 50 mcg DAILY07 PO Last administered on 06:12; Start 11/11/16 at 07:00 Simvastatin (Zocor) 20 mg HS PO Last administered on 11/11/16 21:44; Start at 21:00 Simvastatin (Zocor) 20 mg 1X ONCE PO Last administered on 11/10/16 22:41; Start 11/10/16 at 22:45; Stop 11/10/16 at 22:46; Status DC Ibuprofen 400 mg 400 mg PRN Q6HRS PRN PO INFLAMMATION Last administered on 11/11 13:49; Start 11/10/16 at 23:00 Levofloxacin/ Dextrose (LEVAQUIN 500mg PREMIX) 100 ml @ 100 mls/hr 1X ONCE IV Last administered on 11/11/16 09:51; Start 11/11/16 at 10:00; Stop 11/11/16 at 10:59; Status DC Albuterol Sulfate (Ventolin Neb Soln) 2.5 mg QID NEB Last administered on 07:41; Start 11/11/16 at 09:30 Albuterol Sulfate (Ventolin Neb Soln) 2.5 mg PRN Q2HR PRN NEB DYSPNEA; Start at 09:00 Enoxaparin Sodium (Lovenox 40mg Syringe) 40 mg DAILY SQ Last administered on 09:52; Start 11/11/16 at 10:00 Methylprednisolone Sodium Succinate (Solu-Medrol 125mg Vial) 125 mg Q8HRS IV Last administered on 11/12/16 06:13; Start 11/11/16 at 10:00 Methylprednisolone Sodium Succinate 60 mg 60 mg BID IV ; Start 11/11/16 at 09:00 ; Status UNV Levofloxacin/ Dextrose (LEVAQUIN 250mg PREMIX) 50 ml @ 50 mls/hr Q24H IV ; Start 11/12/16 at 10:00 Amitriptyline HCl (Elavil) 25 mg HS PO Last administered on 11/11/16 21:44; Start 11/11/16 at 21:00 Amlodipine Besylate (Norvasc) 10 mg DAILY PO Last administered on 11/11/16 12: 04; Start 11/11/16 at 11:00 Losartan Potassium (Cozaar) 50 mg DAILY PO Last administered on 11/11/16 12:03 ; Start 11/11/16 at 11:00 Potassium Chloride (Klor-Con) 20 meq DAILY PO Last administered on 11/11/16 12 :02; Start 11/11/16 at 11:00 Metoprolol Tartrate (Lopressor) 100 mg BID PO Last administered on 11/11/16 21 :45; Start 11/11/16 at 11:00 Benzonatate (Tessalon Perle) 200 mg PRN TID PRN PO COUGH Last administered on 13:49; Start 11/11/16 at 13:30 Throat Lozenges (Cepacol Sore Throat Lozenge) 1 maame PRN Q2HRS PRN PO SORE THROAT Last administered on 11/11/16 13:49; Start 11/11/16 at 13:30 Active Scripts Active Reported Metoprolol Tartrate 100 Mg Tablet 100 Mg PO BID Amlodipine Besylate 10 Mg Tablet 10 Mg PO DAILY Losartan Potassium 50 Mg Tablet 50 Mg PO DAILY Levothyroxine Sodium 50 Mcg Tablet 50 Mcg PO DAILY07 Simvastatin 20 Mg Tablet 20 Mg PO HS Amitriptyline Hcl 25 Mg Tablet 25 Mg PO HS Vitals/I & O Vital Sign - Last 24 Hours 11/11/16 11/11/16 11/11/16 11/11/16 11:15 11:37 12:03 12:04 Temp 97.7 97.7 Pulse 106 106 106 Resp 18 B/P 135/66 135/66 135/66 Pulse Ox 96 83 O2 Delivery Nasal Cannula Nasal Cannula O2 Flow Rate 4.0 4.0 11/11/16 11/11/16 11/11/16 11/11/16 12:04 15:12 15:25 19:00 Temp 97.5 98.2 97.5 98.2 Pulse 106 97 95 Resp 18 20 B/P 135/66 104/57 126/53 Pulse Ox 93 95 O2 Delivery Nasal Cannula Nasal Cannula Nasal Cannula O2 Flow Rate 4.0 4.0 11/11/16 11/11/16 11/11/16 11/11/16 19:21 20:27 21:45 23:00 Temp 97.7 97.7 Pulse 95 84 Resp 20 B/P 143/86 138/76 Pulse Ox 98 91 O2 Delivery Nasal Cannula Nasal Cannula Nasal Cannula O2 Flow Rate 4.0 4.0 11/12/16 11/12/16 11/12/16 03:00 07:40 07:45 Temp 97.9 98.3 97.9 98.3 Pulse 83 84 Resp 20 18 B/P 107/44 124/64 Pulse Ox 93 97 O2 Delivery Nasal Cannula Nasal Cannula Nasal Cannula O2 Flow Rate 4.0 4.0 Intake and Output 11/11/16 11/11/16 11/12/16 15:00 23:00 07:00 Intake Total 400 ml 360 ml Output Total 300 ml Balance 400 ml 60 ml APPL,MARCIAL A MD Nov 12, 2016 10:32
[2016-11-12 10:51] VITALS: BP 128/64
[2016-11-12] MEDS: AMLODIPINE BESYLATE 10 MG TABLET PO SCH (11:18)
[2016-11-12] MEDS: METOPROLOL TART IMMED RELEASE 50 MG TABLET PO SCH ×2 (11:18→21:33)
[2016-11-12] MEDS: POTASSIUM CHLORIDE 20 MEQ TABLET.ER. PO SCH (11:18)
[2016-11-12] MEDS: LOSARTAN POTASSIUM 50 MG TABLET. PO SCH (11:18)
[2016-11-12] MEDS: ENOXAPARIN 40 MG/0.4 ML DISP.SYRIN. SQ SCH (11:20)
[2016-11-12] MEDS: IBUPROFEN 400 MG TABLET. PO PRN (11:29)
--- NOTE | 2016-11-12 11:33 | CONS ---
DATE OF CONSULTATION: 11/11/2016 ATTENDING PHYSICIAN: Dr. Delbert Man. REASON FOR CONSULTATION: The patient seen in pulmonary consultation at the request of Dr. Man for abnormal x-ray, increasing shortness of breath. HISTORY OF PRESENT ILLNESS: The patient is an 81-year-old female who presented to the Emergency Room with cold-like symptoms. She has had subjective fever, cough productive of yellow sputum. She was also having some nausea, vomiting, myalgias, and weakness. I was asked to see in consultation for further evaluation and management. She has had abnormal CT of the chest with bilateral pulmonary infiltrates back in January of 2014, at that time, she underwent bronchoscopic evaluation and was essentially normal. She did grow out methicillin-Staph sensitive aureus. She was discharged home on doxycycline. She also grew out Aspergillus, which I felt was not a true infection, ____ she was not treated. She now presents with the above symptoms. She had a chest x-ray. I personally reviewed the x-ray, which revealed a new infiltrate in the right middle lobe with minimal air bronchograms compatible with pneumonia. Otherwise, the basilar infiltrates had actually improved. There were also numerous pulmonary nodules that were seen. The largest pulmonary nodule in the right lower lobe was unchanged from previous scan. PAST MEDICAL HISTORY: Remarkable for: 1. Nodular type of infiltrates as described above with previous bronchoscopy back in 01/2014, bronchoalveolar lavage, grew out methicillin Staph sensitive aureus and Aspergillus. The Aspergillus was not treated at that time. It was felt that was not a true infection. 2. Restless legs syndrome. 3. Hypertension. 4. Hypothyroidism. PAST SURGICAL HISTORY: Status post hysterectomy. ALLERGIES: No known drug allergies. CURRENT MEDICATIONS: List was reviewed. Please see the MRAD. REVIEW OF SYSTEMS: As indicated above, otherwise, a 10-point system was reviewed and negative. SOCIAL HISTORY: She denies any tobacco or alcohol, smoked minimally for 15 years, but quit 25 years ago. FAMILY HISTORY: No family history of lung disorders. PHYSICAL EXAMINATION: GENERAL: The patient was in no respiratory distress. VITAL SIGNS: Stable. O2 saturation was greater than 92% on 4 liters. HEENT: Eyes, the sclerae were nonicteric. NECK: Jugular venous distention was not elevated. No lymphadenopathy. CHEST: Full expansion. LUNGS: Crackles in the bases, otherwise no wheezes. CARDIOVASCULAR: Regular rate and rhythm with S1, S2, no S3. ABDOMEN: Soft, nontender, nondistended. EXTREMITIES: No clubbing, cyanosis or edema. NEUROLOGIC: The patient was awake, alert, following commands. A detailed neuro exam was not performed. LABORATORY DATA: Reviewed. Chest x-ray as indicated above. Serology revealed a negative influenza screen. Electrolytes were noted. White count was normal. IMPRESSION: 1. Right middle lobe infiltrate with air bronchograms compatible with pneumonia. 2. Bilateral nodular infiltrates with previous workup being negative including bronchoscopy. The patient was treated for methicillin-sensitive Staphylococcus aureus. 3. Acute exacerbation of chronic obstructive pulmonary disease. 4. Acute respiratory failure. 5. Toxic encephalopathy. PLAN: 1. The patient will be started on Levaquin and Solu-Medrol. 2. Nebulized treatments. 3. DVT prophylaxis. 4. Follow clinical course and make further recommendations. I do appreciate the privilege in sharing in the patient's care. RUTH TINOCO MD DR: DIANA/carlos JOB#: [id number] / [id number]
--- NOTE | 2016-11-12 11:48 | PDOC ---
PULMONARY PROGRESS NOTES Subjective PT MORE AWAKE AND ALERT FEELS BETTER Vitals Vital Signs Date Time Temp Pulse Resp B/P Pulse Ox O2 Delivery O2 Flow Rate FiO2 11/12/16 11:18 82 128/64 11/12/16 10:51 98.1 96 Nasal Cannula 4.0 98.1 11/12/16 07:40 18 General: Alert Lungs: Crackles Cardiovascular: S1, S2 Abdomen: Soft, Non-tender Neuro Exam: Alert Extremities: No Edema Skin: Warm Labs Laboratory Tests Test 11/10/16 14:30 11/10/16 16:00 11/10/16 21:43 11/11/16 05:00 Influenza Type A Antigen Negative (NEGATIVE) Influenza Type B Antigen Negative (NEGATIVE) White Blood Count 9.2x10^3/uL (4.0-11.0) 7.7x10^3/uL (4.0-11.0) Red Blood Count 4.48x10^6/uL (3.50-5.40) 4.20x10^6/uL (3.50-5.40) Hemoglobin 13.1g/dL (12.0-15.5) 12.3g/dL (12.0-15.5) Hematocrit 40.0% (36.0-47.0) 38.0% (36.0-47.0) Mean Corpuscular Volume 89fL (79-100) 91fL (79-100) Mean Corpuscular Hemoglobin 29pg (25-35) 29pg (25-35) Mean Corpuscular Hemoglobin Concent 33g/dL (31-37) 32g/dL (31-37) Red Cell Distribution Width 13.5% (11.5-14.5) 13.5% (11.5-14.5) Platelet Count 172x10^3/uL (140-400) 153x10^3/uL (140-400) Neutrophils (%) (Auto) 90% (31-73) 90% (31-73) Lymphocytes (%) (Auto) 6% (24-48) 7% (24-48) Monocytes (%) (Auto) 4% (0-9) 2% (0-9) Eosinophils (%) (Auto) 0% (0-3) 0% (0-3) Basophils (%) (Auto) 1% (0-3) 0% (0-3) Neutrophils # (Auto) 8.2x10^3uL (1.8-7.7) 6.9x10^3uL (1.8-7.7) Lymphocytes # (Auto) 0.6x10^3/uL (1.0-4.8) 0.6x10^3/uL (1.0-4.8) Monocytes # (Auto) 0.4x10^3/uL (0.0-1.1) 0.2x10^3/uL (0.0-1.1) Eosinophils # (Auto) 0.0x10^3/uL (0.0-0.7) 0.0x10^3/uL (0.0-0.7) Basophils # (Auto) 0.0x10^3/uL (0.0-0.2) 0.0x10^3/uL (0.0-0.2) Segmented Neutrophils % 81% (35-66) Band Neutrophils % 9% (0-9) Lymphocytes % 6% (24-48) Monocytes % 4% (0-10) Toxic Granulation Slight Toxic Vacuolation Slight Platelet Estimate Adequate (ADEQUATE) Sodium Level 134mmol/L (136-145) 135mmol/L (136-145) Potassium Level 4.3mmol/L (3.5-5.1) 4.4mmol/L (3.5-5.1) Chloride Level 95mmol/L (98-107) 96mmol/L (98-107) Carbon Dioxide Level 34mmol/L (21-32) 34mmol/L (21-32) Anion Gap 5 (6-14) 5 (6-14) Blood Urea Nitrogen 11mg/dL (7-20) 15mg/dL (7-20) Creatinine 0.6mg/dL (0.6-1.0) 0.7mg/dL (0.6-1.0) Estimated GFR (Cockcroft-Gault) 95.5 79.9 Glucose Level 146mg/dL (70-99) 142mg/dL (70-99) Calcium Level 8.7mg/dL (8.5-10.1) 8.9mg/dL (8.5-10.1) Total Bilirubin 0.2mg/dL (0.2-1.0) Direct Bilirubin 0.1mg/dL (0.0-0.2) Aspartate Amino Transf (AST/SGOT) 25U/L (15-37) Alanine Aminotransferase (ALT/SGPT) 20U/L (14-59) Alkaline Phosphatase 104U/L (46-116) Troponin I Quantitative 0.050ng/mL (0.000-0.055) 0.027ng/mL (0.000-0.055) 0.043ng/mL (0.000-0.055) TP-Mxk-D-Type Natriuretic Peptide 1909pg/mL (0-449) Total Protein 7.6g/dL (6.4-8.2) Albumin 3.1g/dL (3.4-5.0) Lipase 118U/L (73-393) Medications Active Scripts Medications Dose Route/Sig Days Date Category Klor-Con M20 (Potassium Chloride) 20 Meq Tab.er.prt 20 Meq PO DAILY 11/10/16 Reported Metoprolol Tartrate 100 Mg Tablet 100 Mg PO BID 11/10/16 Reported Amlodipine Besylate 10 Mg Tablet 10 Mg PO DAILY 11/10/16 Reported Losartan Potassium 50 Mg Tablet 50 Mg PO DAILY 11/10/16 Reported Levothyroxine Sodium 50 Mcg Tablet 50 Mcg PO DAILY07 02/04/14 Reported Simvastatin 20 Mg Tablet 20 Mg PO HS 02/04/14 Reported Amitriptyline Hcl 25 Mg Tablet 25 Mg PO HS 02/04/14 Reported Impression . 1. Right middle lobe infiltrate with air bronchograms compatible with pneumonia. 2. Bilateral nodular infiltrates with previous workup being negative including bronchoscopy. The patient was treated for methicillin-sensitive Staphylococcus aureus. 3. Acute exacerbation of chronic obstructive pulmonary disease. 4. Acute respiratory failure. 5. Toxic encephalopathy. Plan . CONTINUE THE SAME ENCEPHALOPATHY HAS IMPROVE ANTIBX RUTH HAND MD Nov 12, 2016 11:48
--- NOTE | 2016-11-12 11:57 | RAD ---
2016: History: Follow-up right middle lobe pneumonia Comparison is made to a study from 11/10/2016. The heart is enlarged. There is calcific plaquing and tortuosity of the thoracic aorta. The pulmonary vascularity is within normal limits. The pulmonary markings are prominent in a nodular pattern, essentially unchanged. These pulmonary opacities were better delineated on the recent CT study. No new parenchymal abnormality is seen. There is no evidence of pleural fluid. Old healed rib fractures are present on the right. IMPRESSION: 1. Cardiomegaly. 2. Tiny bilateral pulmonary nodules. 3. No significant change since 11/10/2016.
[2016-11-12 15:37] VITALS: BP 126/66
[2016-11-12 19:00] VITALS: BP 125/66
[2016-11-12] MEDS: AMITRIPTYLINE HCL 25 MG TABLET PO SCH (21:32)
[2016-11-12] MEDS: SIMVASTATIN 20 MG TABLET PO SCH (21:32)
[2016-11-12 23:00] VITALS: BP 108/69
[2016-11-13 03:00] VITALS: BP 133/67
[2016-11-13] MEDS: methylPREDNISolone SOD SUCC PF 125 MG/2 ML VIAL. IV SCH ×3 (05:37→21:44)
[2016-11-13] MEDS: LEVOTHYROXINE 50 MCG TABLET PO SCH (05:38)
[2016-11-13] MEDS: BENZONATATE 100 MG CAPSULE. PO PRN ×2 (05:38→21:00)
[2016-11-13 05:50] LABS: CALCIUM 8.8 mg/dL (8.5-10.1); CREATININE 0.7 mg/dL (0.6-1.0); GFR 79.9; POTASSIUM 4.8 mmol/L (3.5-5.1)
[2016-11-13] MEDS: ALBUTEROL SULFATE 2.5 MG/3 ML NEBU. NEB SCH ×4 (06:48→19:34)
[2016-11-13 07:30] VITALS: BP 125/69
[2016-11-13] MEDS: LOSARTAN POTASSIUM 50 MG TABLET. PO SCH (08:47)
[2016-11-13] MEDS: POTASSIUM CHLORIDE 20 MEQ TABLET.ER. PO SCH (08:49)
[2016-11-13] MEDS: METOPROLOL TART IMMED RELEASE 50 MG TABLET PO SCH ×2 (08:49→21:00)
[2016-11-13] MEDS: AMLODIPINE BESYLATE 10 MG TABLET PO SCH (08:50)
[2016-11-13] MEDS: ENOXAPARIN 40 MG/0.4 ML DISP.SYRIN. SQ SCH (08:52)
--- NOTE | 2016-11-13 09:41 | PDOC ---
PULMONARY PROGRESS NOTES Subjective PT MORE AWAKE AND ALERT FEELS BETTER Vitals Vital Signs Date Time Temp Pulse Resp B/P Pulse Ox O2 Delivery O2 Flow Rate FiO2 11/13/16 08:50 78 125/69 11/13/16 07:30 98.0 19 91 Nasal Cannula 4.0 98.0 General: Alert Lungs: Crackles Cardiovascular: S1, S2 Abdomen: Soft, Non-tender Neuro Exam: Alert Extremities: No Edema Skin: Warm Labs Laboratory Tests Test 11/13/16 04:30 Sodium Level 131mmol/L (136-145) Potassium Level 4.8mmol/L (3.5-5.1) Chloride Level 93mmol/L (98-107) Carbon Dioxide Level 36mmol/L (21-32) Anion Gap 2 (6-14) Blood Urea Nitrogen 22mg/dL (7-20) Creatinine 0.7mg/dL (0.6-1.0) Estimated GFR (Cockcroft-Gault) 79.9 Glucose Level 136mg/dL (70-99) Calcium Level 8.8mg/dL (8.5-10.1) Laboratory Tests Test 11/13/16 04:30 Sodium Level 131mmol/L (136-145) Potassium Level 4.8mmol/L (3.5-5.1) Chloride Level 93mmol/L (98-107) Carbon Dioxide Level 36mmol/L (21-32) Anion Gap 2 (6-14) Blood Urea Nitrogen 22mg/dL (7-20) Creatinine 0.7mg/dL (0.6-1.0) Estimated GFR (Cockcroft-Gault) 79.9 Glucose Level 136mg/dL (70-99) Calcium Level 8.8mg/dL (8.5-10.1) Medications Active Scripts Medications Dose Route/Sig Days Date Category Klor-Con M20 (Potassium Chloride) 20 Meq Tab.er.prt 20 Meq PO DAILY 11/10/16 Reported Metoprolol Tartrate 100 Mg Tablet 100 Mg PO BID 11/10/16 Reported Amlodipine Besylate 10 Mg Tablet 10 Mg PO DAILY 11/10/16 Reported Losartan Potassium 50 Mg Tablet 50 Mg PO DAILY 11/10/16 Reported Levothyroxine Sodium 50 Mcg Tablet 50 Mcg PO DAILY07 02/04/14 Reported Simvastatin 20 Mg Tablet 20 Mg PO HS 02/04/14 Reported Amitriptyline Hcl 25 Mg Tablet 25 Mg PO HS 02/04/14 Reported Impression . 1. Right middle lobe infiltrate with air bronchograms compatible with pneumonia. 2. Bilateral nodular infiltrates with previous workup being negative including bronchoscopy. The patient was treated for methicillin-sensitive Staphylococcus aureus. 3. Acute exacerbation of chronic obstructive pulmonary disease. 4. Acute respiratory failure. 5. Toxic encephalopathy. Plan . CONTINUE THE SAME ENCEPHALOPATHY HAS IMPROVE ANTIBX RUTH HAND MD Nov 13, 2016 09:41
--- NOTE | 2016-11-13 09:42 | PDOC ---
GENERAL General: vss and afebrile. less awake and alert this am. right sided rhonchi persist. O2 at 4L/NC. ongoing treatment for pneumonia. continue same. Problems: VITAL SIGNS Vital Signs: Vital Signs Date Time Temp Pulse Resp B/P Pulse Ox O2 Delivery O2 Flow Rate FiO2 11/13/16 08:50 78 125/69 11/13/16 07:30 98.0 19 91 Nasal Cannula 4.0 98.0 I & O I & O Intake and Output 11/13/16 07:00 Intake Total 960 ml Balance 960 ml Intake Oral 960 ml # Voids 6 ALLERGIES Allergies: Allergies Coded Allergies Type Severity Reaction Last Updated Verified No Known Drug Allergies 02/07/14 No MEDS Medications: Current Medications Medications (Trade) Dose Ordered Sig/Eva Start Time Stop Time Status Last Admin Dose Admin Albuterol Sulfate (Ventolin Neb Soln) 2.5 mg PRN Q2HR PRN 11/11/16 09:00 Albuterol/ Ipratropium (Duoneb) 3 ml 1X ONCE 11/10/16 20:00 11/10/16 20:01 DC 11/10/16 19:57 3 ML Albuterol/ Ipratropium 3 ml 3 ml 1X ONCE 11/10/16 15:30 11/10/16 15:37 DC 11/10/16 15:35 3 ML Amitriptyline HCl (Elavil) 25 mg HS 11/11/16 21:00 11/12/16 21:32 25 MG Amlodipine Besylate (Norvasc) 10 mg DAILY 11/11/16 11:00 11/13/16 08:50 10 MG Azithromycin 250 ml @ 250 mls/hr 1X ONCE 11/10/16 16:30 11/10/16 17:29 DC 11/10/16 17:18 250 MLS/HR Benzonatate (Tessalon Perle) 200 mg PRN TID PRN 11/11/16 13:30 11/13/16 05:38 200 MG Ceftriaxone Sodium (Rocephin 1gm Ivpb For Omni) 50 ml @ 100 mls/hr 1X ONCE 11/10/16 16:30 11/10/16 16:59 DC 11/10/16 16:30 100 MLS/HR Enoxaparin Sodium (Lovenox 40mg Syringe) 40 mg DAILY 11/11/16 10:00 11/13/16 08:52 40 MG Ibuprofen 400 mg 400 mg PRN Q6HRS PRN 11/10/16 23:00 11/12/16 11:29 400 MG Levofloxacin/ Dextrose (LEVAQUIN 250mg PREMIX) 50 ml @ 50 mls/hr Q24H 11/12/16 10:00 11/12/16 11:20 50 MLS/HR Levofloxacin/ Dextrose (LEVAQUIN 500mg PREMIX) 100 ml @ 100 mls/hr 1X ONCE 11/11/16 10:00 11/11/16 10:59 DC 11/11/16 09:51 100 MLS/HR Levothyroxine Sodium (Synthroid) 50 mcg DAILY07 11/11/16 07:00 11/13/16 05:38 50 MCG Losartan Potassium (Cozaar) 50 mg DAILY 11/11/16 11:00 11/13/16 08:47 50 MG Methylprednisolone Sodium Succinate (Solu-Medrol 125mg Vial) 125 mg Q8HRS 11/11/16 10:00 11/13/16 05:37 125 MG Methylprednisolone Sodium Succinate 60 mg 60 mg BID 11/11/16 09:00 UNV Metoprolol Tartrate (Lopressor) 100 mg BID 11/11/16 11:00 11/13/16 08:49 100 MG Morphine Sulfate 2 mg PRN Q2HR PRN 11/10/16 17:00 11/11/16 16:59 DC Ondansetron HCl (Zofran) 4 mg PRN Q8HRS PRN 11/10/16 17:00 11/11/16 16:59 DC Oseltamivir Phosphate (Tamiflu) 75 mg 1X ONCE 11/10/16 16:30 11/10/16 16:31 DC 11/10/16 16:50 75 MG Potassium Chloride (Klor-Con) 20 meq DAILY 11/11/16 11:00 11/13/16 08:49 20 MEQ Prednisone (Prednisone) 50 mg 1X ONCE 11/10/16 20:00 11/10/16 20:01 DC 11/10/16 21:21 50 MG Simvastatin (Zocor) 20 mg 1X ONCE 11/10/16 22:45 11/10/16 22:46 DC 11/10/16 22:41 20 MG Throat Lozenges (Cepacol Sore Throat Lozenge) 1 amy PRN Q2HRS PRN 11/11/16 13:30 11/11/16 13:49 1 AMY LAB Lab: Laboratory Tests Test 11/13/16 04:30 Sodium Level 131mmol/L (136-145) Potassium Level 4.8mmol/L (3.5-5.1) Chloride Level 93mmol/L (98-107) Carbon Dioxide Level 36mmol/L (21-32) Anion Gap 2 (6-14) Blood Urea Nitrogen 22mg/dL (7-20) Creatinine 0.7mg/dL (0.6-1.0) Estimated GFR (Cockcroft-Gault) 79.9 Glucose Level 136mg/dL (70-99) Calcium Level 8.8mg/dL (8.5-10.1) MARCIAL MOELLER MD Nov 13, 2016 09:42
[2016-11-13 11:17] VITALS: BP 107/58
[2016-11-13 14:55] VITALS: BP 116/52
[2016-11-13 19:59] VITALS: BP 129/55
[2016-11-13] MEDS: SIMVASTATIN 20 MG TABLET PO SCH (20:59)
[2016-11-13] MEDS: AMITRIPTYLINE HCL 25 MG TABLET PO SCH (21:00)
[2016-11-13 23:24] VITALS: BP 108/52
[2016-11-14 03:54] VITALS: BP 100/47
[2016-11-14] MEDS: LEVOTHYROXINE 50 MCG TABLET PO SCH (05:57)
[2016-11-14] MEDS: methylPREDNISolone SOD SUCC PF 125 MG/2 ML VIAL. IV SCH ×2 (05:57→13:45)
[2016-11-14] MEDS: BENZONATATE 100 MG CAPSULE. PO PRN (06:02)
[2016-11-14 07:00] VITALS: BP 116/53
[2016-11-14] MEDS: ALBUTEROL SULFATE 2.5 MG/3 ML NEBU. NEB SCH ×3 (07:01→14:31)
--- NOTE | 2016-11-14 08:18 | PDOC ---
GENERAL General: vss and afebrile. [place]. chest same and heart regular. will need snu at discharge. will ask for snu eval for same and continue same. Problems: VITAL SIGNS Vital Signs: Vital Signs Date Time Temp Pulse Resp B/P Pulse Ox O2 Delivery O2 Flow Rate FiO2 11/14/16 07:00 97.7 82 16 116/53 89 Room Air 97.7 11/14/16 03:54 4.0 I & O I & O Intake and Output 11/14/16 07:00 Intake Total 840 ml Output Total 1550 ml Balance -710 ml Intake Oral 840 ml Output Urine Total 1550 ml # Voids 5 ALLERGIES Allergies: Allergies Coded Allergies Type Severity Reaction Last Updated Verified No Known Drug Allergies 02/07/14 No MEDS Medications: Current Medications Medications (Trade) Dose Ordered Sig/Eva Start Time Stop Time Status Last Admin Dose Admin Albuterol Sulfate (Ventolin Neb Soln) 2.5 mg PRN Q2HR PRN 11/11/16 09:00 Albuterol/ Ipratropium (Duoneb) 3 ml 1X ONCE 11/10/16 20:00 11/10/16 20:01 DC 11/10/16 19:57 3 ML Albuterol/ Ipratropium 3 ml 3 ml 1X ONCE 11/10/16 15:30 11/10/16 15:37 DC 11/10/16 15:35 3 ML Amitriptyline HCl (Elavil) 25 mg HS 11/11/16 21:00 11/13/16 21:00 25 MG Amlodipine Besylate (Norvasc) 10 mg DAILY 11/11/16 11:00 11/13/16 08:50 10 MG Azithromycin 250 ml @ 250 mls/hr 1X ONCE 11/10/16 16:30 11/10/16 17:29 DC 11/10/16 17:18 250 MLS/HR Benzonatate (Tessalon Perle) 200 mg PRN TID PRN 11/11/16 13:30 11/14/16 06:02 200 MG Ceftriaxone Sodium (Rocephin 1gm Ivpb For Omni) 50 ml @ 100 mls/hr 1X ONCE 11/10/16 16:30 11/10/16 16:59 DC 11/10/16 16:30 100 MLS/HR Enoxaparin Sodium (Lovenox 40mg Syringe) 40 mg DAILY 11/11/16 10:00 11/13/16 08:52 40 MG Ibuprofen 400 mg 400 mg PRN Q6HRS PRN 11/10/16 23:00 11/12/16 11:29 400 MG Levofloxacin/ Dextrose (LEVAQUIN 250mg PREMIX) 50 ml @ 50 mls/hr Q24H 11/12/16 10:00 11/13/16 10:39 50 MLS/HR Levofloxacin/ Dextrose (LEVAQUIN 500mg PREMIX) 100 ml @ 100 mls/hr 1X ONCE 11/11/16 10:00 11/11/16 10:59 DC 11/11/16 09:51 100 MLS/HR Levothyroxine Sodium (Synthroid) 50 mcg DAILY07 11/11/16 07:00 11/14/16 05:57 50 MCG Losartan Potassium (Cozaar) 50 mg DAILY 11/11/16 11:00 11/13/16 08:47 50 MG Methylprednisolone Sodium Succinate (Solu-Medrol 125mg Vial) 125 mg Q8HRS 11/11/16 10:00 11/14/16 05:57 125 MG Methylprednisolone Sodium Succinate 60 mg 60 mg BID 11/11/16 09:00 UNV Metoprolol Tartrate (Lopressor) 100 mg BID 11/11/16 11:00 11/13/16 21:00 100 MG Morphine Sulfate 2 mg PRN Q2HR PRN 11/10/16 17:00 11/11/16 16:59 DC Ondansetron HCl (Zofran) 4 mg PRN Q8HRS PRN 11/10/16 17:00 11/11/16 16:59 DC Oseltamivir Phosphate (Tamiflu) 75 mg 1X ONCE 11/10/16 16:30 11/10/16 16:31 DC 11/10/16 16:50 75 MG Potassium Chloride (Klor-Con) 20 meq DAILY 11/11/16 11:00 11/13/16 08:49 20 MEQ Prednisone (Prednisone) 50 mg 1X ONCE 11/10/16 20:00 11/10/16 20:01 DC 11/10/16 21:21 50 MG Simvastatin (Zocor) 20 mg 1X ONCE 11/10/16 22:45 11/10/16 22:46 DC 11/10/16 22:41 20 MG Throat Lozenges (Cepacol Sore Throat Lozenge) 1 maame PRN Q2HRS PRN 11/11/16 13:30 11/11/16 13:49 1 MARCIAL HAQ MD Nov 14, 2016 08:18
[2016-11-14] MEDS: LOSARTAN POTASSIUM 50 MG TABLET. PO SCH (09:08)
[2016-11-14] MEDS: AMLODIPINE BESYLATE 10 MG TABLET PO SCH (09:09)
[2016-11-14] MEDS: POTASSIUM CHLORIDE 20 MEQ TABLET.ER. PO SCH (09:09)
[2016-11-14] MEDS: METOPROLOL TART IMMED RELEASE 50 MG TABLET PO SCH (09:09)
[2016-11-14] MEDS: ENOXAPARIN 40 MG/0.4 ML DISP.SYRIN. SQ SCH (09:10)
[2016-11-14] MEDS: IBUPROFEN 400 MG TABLET. PO PRN (09:11)
[2016-11-14 11:00] VITALS: BP 131/67
--- NOTE | 2016-11-14 13:30 | PDOC ---
PULMONARY PROGRESS NOTES Subjective PT MORE AWAKE AND ALERT FEELS BETTER Vitals Vital Signs Date Time Temp Pulse Resp B/P Pulse Ox O2 Delivery O2 Flow Rate FiO2 11/14/16 11:00 96.6 87 16 131/67 100 Nasal Cannula 4.0 96.6 General: Alert Lungs: Crackles Cardiovascular: S1, S2 Abdomen: Soft, Non-tender Neuro Exam: Alert Extremities: No Edema Skin: Warm Labs Laboratory Tests Test 11/13/16 04:30 Sodium Level 131mmol/L (136-145) Potassium Level 4.8mmol/L (3.5-5.1) Chloride Level 93mmol/L (98-107) Carbon Dioxide Level 36mmol/L (21-32) Anion Gap 2 (6-14) Blood Urea Nitrogen 22mg/dL (7-20) Creatinine 0.7mg/dL (0.6-1.0) Estimated GFR (Cockcroft-Gault) 79.9 Glucose Level 136mg/dL (70-99) Calcium Level 8.8mg/dL (8.5-10.1) Medications Active Scripts Medications Dose Route/Sig Days Date Category Klor-Con M20 (Potassium Chloride) 20 Meq Tab.er.prt 20 Meq PO DAILY 11/10/16 Reported Metoprolol Tartrate 100 Mg Tablet 100 Mg PO BID 11/10/16 Reported Amlodipine Besylate 10 Mg Tablet 10 Mg PO DAILY 11/10/16 Reported Losartan Potassium 50 Mg Tablet 50 Mg PO DAILY 11/10/16 Reported Levothyroxine Sodium 50 Mcg Tablet 50 Mcg PO DAILY07 02/04/14 Reported Simvastatin 20 Mg Tablet 20 Mg PO HS 02/04/14 Reported Amitriptyline Hcl 25 Mg Tablet 25 Mg PO HS 02/04/14 Reported Impression . 1. Right middle lobe infiltrate with air bronchograms compatible with pneumonia. 2. Bilateral nodular infiltrates with previous workup being negative including bronchoscopy. The patient was treated for methicillin-sensitive Staphylococcus aureus. 3. Acute exacerbation of chronic obstructive pulmonary disease. 4. Acute respiratory failure. 5. Toxic encephalopathy. Plan . CONTINUE THE SAME ENCEPHALOPATHY HAS IMPROVE ANTIBX RUTH HAND MD Nov 14, 2016 13:30
[2016-11-14 15:00] VITALS: BP 122/57
== END 2016-11-14 16:18 | DRG 177 ==
LOC: ER 14:15 → 5 NORTH 16:49
PROVIDERS: ADMIT Family Medicine; ATTEND Family Medicine
DX: J15.6 Pneumonia due to other Gram-negative bacteria (principal); G92 Toxic encephalopathy; J96.01 Acute respiratory failure with hypoxia; J44.0 Chronic obstructive pulmonary disease with (acute) lower respiratory infection; J44.1 Chronic obstructive pulmonary disease with (acute) exacerbation; E03.9 Hypothyroidism, unspecified; E78.5 Hyperlipidemia, unspecified; G25.81 Restless legs syndrome; I10 Essential (primary) hypertension; Z87.891 Personal history of nicotine dependence; Z90.710 Acquired absence of both cervix and uterus
CPT/HCPCS: 36415; 71010; 71250; 80048; 80076; 83690; 83880; 84484; 85007; 85027; 87804; 93005; 94640; 94760; 96365; 96367; J0456; J0690; J1650; J1956; J2930; J7512; J7620; 97110; 97116; 97530; 97535; 99285-25